=== PATIENT | female | born 1985 | race African-American/Black ===

== ENCOUNTER 2021-07-12 13:04 | Emergency (ER) | payer OTHER ==
[~2021-07-12] VITALS: Ht 165.1 cm; Wt 69.0 kg
[2021-07-12] MEDS ORDERED: METOCLOPRAMIDE HCL 10MG TABLET PO ONE (13:30)
[2021-07-12] MEDS ORDERED: ACETAMINOPHEN 325MG TABLET PO ONE (13:30)
[2021-07-12 15:35] VITALS: BP 122/75
== END 2021-07-12 15:38 | disposition home or self-care (01) ==
LOC: ER 13:16
DX: S80.11XA Contusion of right lower leg, initial encounter (principal); V43.52XA Car driver injured in collision with other type car in traffic accident, initial encounter; Y93.89 Activity, other specified; Y92.414 Local residential or business street as the place of occurrence of the external cause
CPT/HCPCS: 73590; 99283; J8597